=== PATIENT | male | born 1960 | race Two or more races ===

== ENCOUNTER 2024-03-29 15:21 | Emergency (ER) | payer OTHER ==
[~2024-03-29] VITALS: Ht 375.9 cm; Wt 96.8 kg
[2024-03-29 16:16] VITALS: PULSE 103; RESP 18; O2SAT 100
[2024-03-29] MEDS: LIDOCAINE 1% (LOCAL ANESTH.) PF 5ml SDV ID ONE (16:18)
[2024-03-29] MEDS: ceFAZolin 1GM/50ML 50 ML IV ONE (16:21)
[2024-03-29] MEDS: TETANUS-DIPTH-ACEL PERTUSSIS 0.5ML SYR Tdap IM ONE (17:21)
== END 2024-03-29 17:45 | disposition home or self-care (01) ==
LOC: EDBD 15:21 → ER 15:21
DX: S51.812A Laceration without foreign body of left forearm, initial encounter (principal); E78.5 Hyperlipidemia, unspecified; Z88.0 Allergy status to penicillin; Z98.890 Other specified postprocedural states; W26.0XXA Contact with knife, initial encounter; Y93.89 Activity, other specified; Y92.89 Other specified places as the place of occurrence of the external cause; Y99.8 Other external cause status
CPT/HCPCS: 12002; 90471; 90715; 96365; 99284; J0690

== ENCOUNTER 2025-05-13 12:32 | Outpatient (CLI) | payer OTHER | END 2025-05-13 17:00 | disposition home or self-care (01) | LOC: LAB 12:32 | PROVIDERS: ATTEND Internal Medicine | DX: E55.9 Vitamin D deficiency, unspecified (principal); E78.49 Other hyperlipidemia; E61.2 Magnesium deficiency; E79.0 Hyperuricemia without signs of inflammatory arthritis and tophaceous disease; D51.9 Vitamin B12 deficiency anemia, unspecified; R94.6 Abnormal results of thyroid function studies; R68.89 Other general symptoms and signs; R73.09 Other abnormal glucose; R82.998 Other abnormal findings in urine; R82.90 Unspecified abnormal findings in urine; R82.79 Other abnormal findings on microbiological examination of urine | CPT/HCPCS: 82306; 87086 ==